=== PATIENT | male | born 1965 | race Caucasian/White ===

== ENCOUNTER 2016-12-28 18:19 | Emergency (ER) | payer OTHER ==
[~2016-12-28] VITALS: Ht 185.4 cm; Wt 154.2 kg
[~2016-12-28 18:19] MED LIST: ASPIRIN81 M1 PO; ATARAX25 MG PO; AUGMENTIN 875 M1 TAB PO; BACTRIM DS 8001 TA1 PO; CALCIPOTRIENE0.005% TP; CLOBETASOL PROP15 GM TP; CLOBETASOL0.05% T; DAILY MULTIPLE1 TA3 PO; DOVONEX0.0051 T; DOXYCYCLINE100 M3 PO; ECOTRIN81 M1 PO; ESIDREX,ORETIC,25 MG PO; HUMIRA40 MG/0.2 SC; HUMIRA40 MG/0.3 SQ; HYDROCODONE BIT1 T11 PO; INDOCIN50 MG PO; K-Dur 20MEQ20 MEQ PO; KEFLEX500 M1 PO; KEFLEX500 MG PO; KLOR-CON M2020 ME1 PO; LASIX40 MG PO; LEVOFLOXACIN500 MG PO; LEVOTHROID0.125 MG PO; LEVOTHYROXIN0.125 M1 PO; LEVOTHYROXINE0.15 MG PO; LIPITOR20 MG PO; LISINOPRIL20 MG PO; Lopressor25 MG PO; MOTRIN800 MG PO; PLAVIX75 M1 PO; PREDNICOT20 MG PO; PREDNISONE10 MG PO; PREDNISONE20 M1 PO; PRINIVIL10 MG PO; PRINIVIL20 M1 PO; PRINIVIL20 MG PO; SORIATANE25 MG PO; ULTRAM50 MG PO; VIBRAMYCIN100 MG PO; VICO10300 PO; [UNRECOGNIZED DRUG - CODE] TP; [UNRECOGNIZED DRUG - OTHER] PO
[2016-12-28] MEDS ORDERED: VIBRAMYCIN100 MG PO (18:46)
== END 2016-12-28 18:53 | disposition home or self-care (01) ==
LOC: ED 18:19
DX: L40.9 Psoriasis, unspecified (principal); Z88.1 Allergy status to other antibiotic agents; Z88.8 Allergy status to other drugs, medicaments and biological substances; Z79.82 Long term (current) use of aspirin

== ENCOUNTER 2017-01-03 20:06 | Inpatient (IN) | payer OTHER ==
[~2017-01-03] VITALS: Ht 185.4 cm; Wt 179.8 kg
--- NOTE | ~2017-01-03 | CON ---
[place], [place] REPORT OF CONSULTATION [id number] #: [id number] ROOM: 526 DOCTOR: FAWAD TATUM,DECEMBER BIRTHDATE: [birth year] DOS: 01/04/2017 HISTORY OF PRESENT ILLNESS: This is a 51-year-old morbidly obese male who was admitted with bilateral lower extremity cellulitis. He was admitted yesterday. He had been taking doxycycline at home without improvement. He had increased lower extremity pain, redness and swelling. He was apparently here briefly and got 1 day of treatment left with AMA. He is now currently on vancomycin and Zosyn. He also was given 1 dose of clindamycin and he states he tends to have cellulitis approximately once a year. He has extensive psoriasis. He denies any fevers, though he did have some chills in the last day or so. WBC is 8.7 on admission. PAST MEDICAL HISTORY: As above as well as acute coronary syndrome, arthritis of great toe at the metatarsophalangeal joint, coronary artery disease, diverticulosis, hypertension, hepatomegaly, morbid obesity, VT, panic attack. Again, he has extensive psoriasis and psoriatic arthritis, he has seen he states 14 different dermatologists and received biologics as well as used a lot of topical steroids over the years. 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 FAMILY MEDICAL HISTORY: Significant for breast cancer and colon cancer. ALLERGIES: Include CEPHALEXIN, which causes him to turn red and EFALIZUMAB. LABORATORY DATA: WBC is 8.7, platelets 207, BUN 9, creatinine 1.04. LFTs within normal limits. C-reactive protein 1.1, albumin 4.0. Blood cultures are negative thus far. He had ultrasound of his lower extremities, which is negative for DVT as well as clear chest x-ray. REVIEW OF SYSTEMS: Alert and oriented, states his leg redness, swelling and discomfort are much better. He is chronically swells in lower extremities. Again, he has had psoriasis for at least 20 years. He denies any nausea, vomiting, or diarrhea. No cough or shortness of breath. Again, no fevers, some chills in the last day or so. He is morbidly obese. No issues with urination. Further review of systems is unremarkable. CURRENT MEDICATIONS: Include Lipitor, Dulcolax, vancomycin, Lopressor, Zestril, Lovenox, Plavix, aspirin, Synthroid and Zosyn. PHYSICAL EXAMINATION: VITAL SIGNS: Temp 98.8, pulse 59, respirations 20, BP 116/76. GENERAL: A 51-year-old morbidly obese male, in no acute distress. HEAD, EYES, EARS, NOSE AND THROAT: Normocephalic. Mucous membranes pink, moist. No thrush. NECK: No cervical lymphadenopathy. LUNGS: Clear to auscultation bilaterally. Respirations even and unlabored. HEART: Regular rhythm. No murmur appreciated. ABDOMEN: Soft, obese, nontender, no masses. Positive bowel sounds. [place], [place] REPORT OF CONSULTATION NAME: DESTINY PRUITT UNIT #: [id number] ROOM: 526 DOCTOR: FAWAD TATUM,DECEMBER BIRTHDATE: [birth year] EXTREMITIES: +3 edema bilateral lower extremities, which are dark red in color. He appears to have combined with his psoriasis extensive probably tinea pedis of his bilateral feet and he is somewhat systemically rashy and has psoriasis plaques. ASSESSMENT: Bilateral lower extremity cellulitis, which is improving on current antibiotics with vancomycin and Zosyn. He failed outpatient treatment with doxycycline. He has CEPHALOSPORIN allergy. I had a long discussion with him regarding control of the tinea pedis. Anyhow that will take several weeks if not months to really began clear, we will start him on oral Lamisil as well as topical antifungal, transition him to p.o. antibiotics in the next 24-48 hours, probably a quinolone possibly amoxicillin. Staph is not the likely source given the fact that he failed doxycycline as an outpatient, leaving it to be likely strep or possibly other bacteria given the condition of his skin and the fact that he takes very long, very hot soaks in baths on a regular basis, he does not shower. I did have a long discussion with him regarding that for hygiene, prevention of infection as well as to help maintain his skin, he will be better off to take showers and with not using very hot water as this will further dry his skin. Case discussed with Dr. Raquel Johnson. GOPAL RC CELESTIN RAQUEL JOHNSON MD CM:CONSTR:REPORT OF CONSULTATION 1738 01/04/17 1913 interface
--- NOTE | ~2017-01-03 | CON ---
[place], [place] REPORT OF CONSULTATION NAME: DESTINY PRUITT UNIT #: [id number] ROOM: 526 DOCTOR: ELIZABETH YOUNG,RAQUEL Davis BIRTHDATE: [birth year] DOS: 01/04/2017 ADDENDUM I agree with above plans as outlined in the Infectious Disease consult after reviewing the chart, labs and radiographs. We follow the patient up clinically and adjust accordingly. RAQUEL JOHNSON MD CM:CONSTR:REPORT OF CONSULTATION 99 01/04/171907 interface
[2017-01-03 20:09] VITALS: BP 144/94
[2017-01-03 21:00] LABS: BASO # 0.1 10*3/uL (0.0-0.1); BASO % 0.7 % (0.0-1.0); EOS # 0.4 10*3/uL (0.0-0.4); EOS % 4.2 % (1.0-4.0); HEMOGLOBIN 13.4 g/dl (14.0-18.0); LYMPH # 1.8 10*3/uL (1.3-4.4); LYMPH % 21.3 % (27.0-41.0); MEAN CELL VOLUME 84.1 fl (80.0-94.0); MEAN CORPUSCULAR HGB 26.2 pg (27.0-31.0); MEAN CORPUSCULAR HGB CONC 31.2 g/dl (33.0-37.0); MEAN PLATELET VOLUME 10.7 fl (9.6-12.3); MONO # 0.9 10*3/uL (0.1-1.0); MONO % 10.8 % (3.0-9.0); NEUT # 5.4 10*3/uL (2.3-7.9); NEUT % 62.7 % (47.0-73.0); PLATELET COUNT AUTOMATED 207 10*3/uL (130-400); RED BLOOD COUNT 5.11 10*6/uL (4.50-5.90); RED CELL DISTRI WIDTH 15.9 % (0-14.5); WHITE BLOOD COUNT 8.7 10*3/uL (4.8-10.8)
[2017-01-03 21:16] LABS: ALKALINE PHOSPHATASE 124 U/L (45-117); BILIRUBIN, TOTAL 0.7 mg/dl (0.2-1.0); BUN 9 mg/dl (7-24); CARBON DIOXIDE 26 mmol/L (21-32); CHLORIDE 106 mmol/L (98-107); EST GLOM FILT AFRICAN AMERICAN > 60 ml/min; GLUCOSE 90 mg/dL (65-99); POTASSIUM 3.9 mmol/L (3.5-5.1); SGOT/AST 18 IU/L (3-35); SGPT/ALT 27 U/L (12-78); SODIUM 141 mmol/L (136-145); TOTAL PROTEIN 8.1 gm/dL (6.4-8.2)
[2017-01-03 22:30] VITALS: BP 153/84
[2017-01-03 22:32] LABS: BILIRUBIN NEGATIVE (NEGATIVE); BLOOD NEGATIVE (NEGATIVE); CLARITY SL CLOUDY (CLEAR); COLOR YELLOW (YELLOW); GLUCOSE NEGATIVE (NEGATIVE); KETONE NEGATIVE (NEGATIVE); LEUKO ESTERASE NEGATIVE (NEGATIVE); NITRITE NEGATIVE (NEGATIVE); PH 6.5 (5.0-9.0); PROTEIN NEGATIVE (NEGATIVE); SPECIFIC GRAVITY 1.015 (1.005-1.030)
[2017-01-03 22:38] LABS: BACTERIA 1+; RBC 0-2 rbc/hpf (0-2); URINE REFLEX COMMENT NO (NO); WBC 0-2 wbc/hpf (0-5)
[2017-01-04] VITALS: BP 131/64
[2017-01-04 08:00] VITALS: BP 128/66
[2017-01-04 12:00] VITALS: BP 140/76
[2017-01-04 16:24] VITALS: BP 116/76
[2017-01-04 18:47] LABS: HEMOGLOBIN A1c 6.2 % (4.8-5.6)
[2017-01-04 21:11] VITALS: BP 138/68
[2017-01-05] VITALS: BP 125/62
[2017-01-05] MEDS ORDERED: LAMISIL AT JOCK IT1% T (10:46)
[2017-01-05] MEDS ORDERED: LEVAQUIN750 M1 PO (10:46)
[2017-01-05] MEDS ORDERED: LAMISIL250 MG PO (10:46)
== END 2017-01-05 07:52 | disposition left against medical advice (07) | DRG 603 ==
LOC: ED 20:06 → EDHOLD 20:51 → 5E 21:21
PROVIDERS: Emergency Medicine Emergency Medical Services; Hospitalist
DX: L03.116 Cellulitis of left lower limb (principal); Z68.41 Body mass index [BMI] 40.0-44.9, adult; I10 Essential (primary) hypertension; E66.01 Morbid (severe) obesity due to excess calories; L03.115 Cellulitis of right lower limb; L40.0 Psoriasis vulgaris; F41.0 Panic disorder [episodic paroxysmal anxiety]; I25.10 Atherosclerotic heart disease of native coronary artery without angina pectoris; R59.1 Generalized enlarged lymph nodes; K57.90 Diverticulosis of intestine, part unspecified, without perforation or abscess without bleeding; M13.879 Other specified arthritis, unspecified ankle and foot; E03.9 Hypothyroidism, unspecified; R73.03 Prediabetes; Z53.21 Procedure and treatment not carried out due to patient leaving prior to being seen by health care provider; I25.2 Old myocardial infarction; Z88.1 Allergy status to other antibiotic agents; Z88.8 Allergy status to other drugs, medicaments and biological substances; Z80.3 Family history of malignant neoplasm of breast; Z83.79 Family history of other diseases of the digestive system; Z79.82 Long term (current) use of aspirin; Z79.2 Long term (current) use of antibiotics; Z79.899 Other long term (current) drug therapy

== ENCOUNTER 2017-01-12 21:22 | Emergency (ER) | payer OTHER ==
[~2017-01-12] VITALS: Ht 185.4 cm; Wt 147.4 kg
[~2017-01-12 21:22] MED LIST changes: +LAMISIL AT JOCK IT1% T; +LAMISIL250 MG PO; +LEVAQUIN750 M1 PO
[2017-01-12] MEDS ORDERED: DIFLUCAN150 MG PO (22:23)
[2017-01-13] MEDS ORDERED: NATURE'S BLEND F1 MG PO (18:25)
[2017-01-14] MEDS ORDERED: CLOBETASOL PROP15 GM TP (13:48)
== END 2017-01-12 23:27 | disposition home or self-care (01) ==
LOC: ED 21:22
DX: L40.8 Other psoriasis (principal); B37.89 Other sites of candidiasis; Z79.899 Other long term (current) drug therapy; Z79.82 Long term (current) use of aspirin; Z88.1 Allergy status to other antibiotic agents; Z88.8 Allergy status to other drugs, medicaments and biological substances

== ENCOUNTER 2017-01-15 12:48 | Emergency (ER) | payer OTHER ==
[~2017-01-15] VITALS: Ht 185.4 cm; Wt 142.9 kg
[~2017-01-15 12:48] MED LIST changes: +DIFLUCAN150 MG PO; +NATURE'S BLEND F1 MG PO
[2017-01-15] MEDS ORDERED: MYCOLOG CREAM 115 GM T (13:06)
[2017-01-16] MEDS ORDERED: NAPROSYN500 MG PO (09:25)
[2017-01-16] MEDS ORDERED: CLARITIN10 MG PO (09:25)
[2017-01-16] MEDS ORDERED: PREDNISONE50 MG PO (09:25)
[2017-01-16] MEDS ORDERED: FLUCONAZOLE100 MG PO (09:25)
[2017-01-16] MEDS ORDERED: ZOFRAN ODT4 MG SL (09:52)
== END 2017-01-15 15:05 | disposition home or self-care (01) ==
LOC: ED 12:48
DX: L30.8 Other specified dermatitis (principal); I10 Essential (primary) hypertension; I25.10 Atherosclerotic heart disease of native coronary artery without angina pectoris; E03.9 Hypothyroidism, unspecified; I25.2 Old myocardial infarction; F41.0 Panic disorder [episodic paroxysmal anxiety]; E66.01 Morbid (severe) obesity due to excess calories; Z88.1 Allergy status to other antibiotic agents; Z88.8 Allergy status to other drugs, medicaments and biological substances; Z79.82 Long term (current) use of aspirin; Z79.899 Other long term (current) drug therapy

== ENCOUNTER 2017-01-16 08:45 | Emergency (ER) | payer OTHER ==
[~2017-01-16] VITALS: Ht 185.4 cm; Wt 145.1 kg
[~2017-01-16 08:45] MED LIST changes: +MYCOLOG CREAM 115 GM T
[2017-01-16] MEDS ORDERED: FLUCONAZOLE100 MG PO (09:25)
[2017-01-16] MEDS ORDERED: CLARITIN10 MG PO (09:25)
[2017-01-16] MEDS ORDERED: PREDNISONE50 MG PO (09:25)
[2017-01-16] MEDS ORDERED: NAPROSYN500 MG PO (09:25)
[2017-01-16] MEDS ORDERED: ZOFRAN ODT4 MG SL (09:52)
[2017-01-16 10:35] LABS: BASO % 0.1 % (0.0-1.0); EOS % 0.1 % (1.0-4.0); HEMATOCRIT 42.2 % (42.0-52.0); HEMOGLOBIN 13.5 g/dl (14.0-18.0); IG # 0.1 10*3/uL (0.0-0.1); LYMPH % 6.9 % (27.0-41.0); MEAN CELL VOLUME 82.4 fl (80.0-94.0); MEAN CORPUSCULAR HGB 26.4 pg (27.0-31.0); MONO # 1.2 10*3/uL (0.1-1.0); MONO % 7.9 % (3.0-9.0); NEUT # 12.3 10*3/uL (2.3-7.9); NEUT % 84.7 % (47.0-73.0); PLATELET COUNT AUTOMATED 188 10*3/uL (130-400); RED BLOOD COUNT 5.12 10*6/uL (4.50-5.90); RED CELL DISTRI WIDTH 16.7 % (0-14.5); WHITE BLOOD COUNT 14.6 10*3/uL (4.8-10.8)
== END 2017-01-16 11:19 | disposition short-term general hospital (02) ==
LOC: ED 08:45
PROVIDERS: Emergency Medicine
DX: L27.0 Generalized skin eruption due to drugs and medicaments taken internally (principal); L40.9 Psoriasis, unspecified; B37.9 Candidiasis, unspecified; I10 Essential (primary) hypertension; E03.9 Hypothyroidism, unspecified; I25.10 Atherosclerotic heart disease of native coronary artery without angina pectoris; M19.90 Unspecified osteoarthritis, unspecified site; Z88.1 Allergy status to other antibiotic agents; Z88.8 Allergy status to other drugs, medicaments and biological substances

== ENCOUNTER 2017-01-30 08:33 | Inpatient (IN) | payer OTHER ==
[~2017-01-30] VITALS: Ht 188 cm; Wt 175.7 kg
--- NOTE | ~2017-01-30 | CON ---
[place], [place] REPORT OF CONSULTATION NAME: DESTINY PRUITT UNIT #: [id number] ROOM: 409 DOCTOR: ELIZABETH YOUNG,RAQUEL Davis BIRTHDATE: [birth year] DOS: 01/30/2017 ADDENDUM INFECTIOUS DISEASE I agree with above plans as described. We will follow the patient up clinically and make adjustments accordingly as labs and cultures return. RAQUEL JOHNSON MD CM:CONSTR:REPORT OF CONSULTATION 1212 02/02/17 1525 interface
--- NOTE | ~2017-01-30 | CON ---
[place], [place] REPORT OF CONSULTATION [id number] UNIT #: [id number] ROOM: 409 DOCTOR: FAWAD TATUM,DECEMBER BIRTHDATE: [birth year] DOS: 01/30/2017 HISTORY OF PRESENT ILLNESS: A 51-year-old obese male who is admitted from home. He states he was sent in by [facility] due to positive blood cultures. He has been in and out of the hospital for lower extremity cellulitis since beginning of January. He was here briefly on 01/05/2017 and left AMA. He came back on 01/14/2017, received Levaquin and vancomycin. 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 He also was seen by Dermatology and given script for methotrexate, which he has not yet started as well as folic acid, which he also has not started. He was discharged approximately 10 days ago with no antibiotics. Yesterday, he developed chills and went to [facility] Emergency Room. He had blood cultures done. The preliminary report has been obtained, and it shows Gram-positive cocci in pairs and chains from 1 set. ID is now consulted for positive blood cultures. He received a dose of doxycycline in the Emergency Room IV. PAST MEDICAL HISTORY: As above as well as coronary artery disease status post stenting, hypertension, hyperlipidemia, hypothyroidism, psoriasis, and diverticulosis. FAMILY MEDICAL HISTORY: Father with colon cancer, mother with breast cancer. 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 ALLERGIES: Include LEVAQUIN, VANCOMYCIN, CEPHALOSPORINS, CEPHALEXIN, EFALIZUMAB. CURRENT MEDICATIONS: Include Zestril, Lovenox, Plavix, Lipitor, aspirin, Synthroid, Kenalog, Lopressor, Restoril, Zofran, milk of magnesium, Dulcolax and again, he received one dose of IV doxycycline. REVIEW OF SYSTEMS: Alert and oriented, states he feels much better. Denies any fevers. No nausea, vomiting or diarrhea. He has resolving systemic rash, which he states is much improved from 12 days ago when it began. No headache or dizziness. No chest pain or palpitations. He has chronic lower extremity edema. Does have psoriasis. Denies any pain. No open wounds. Further review of systems is unremarkable. PHYSICAL EXAMINATION: VITAL SIGNS: Show temperature 97.7, pulse 70, respirations 18, BP 148/78. LABORATORY DATA: WBC is 8.9, platelets 165, sed rate of 32, BUN 5, creatinine 1.03. LFTs within normal limits. Albumin 3.5. PHYSICAL EXAMINATION: GENERAL: A 51-year-old obese male in no acute distress. [place], [place] REPORT OF CONSULTATION NAME: DESTINY PRUITT UNIT #: [id number] ROOM: 409 DOCTOR: FAWAD TATUM,DECEMBER BIRTHDATE: [birth year] HEAD, EYES, EARS, NOSE AND THROAT: Normocephalic. Mucous membranes pink and moist. No thrush. NECK: No cervical lymphadenopathy. LUNGS: Clear to auscultation bilaterally. Respirations even and unlabored. HEART: Regular rhythm. No murmur appreciated. ABDOMEN: Soft, obese, nontender, no masses. EXTREMITIES: +2 edema bilateral lower extremity. Systemically he has signs of psoriasis as well as erythematous color to his entire body with a very dry skin, where he has peeled recently from his rash, but no open wounds. ASSESSMENT: Bacteremia in a patient who recently had systemic rash due to allergic reaction of vancomycin, Gram-positive cocci in chains or pairs would be consistent with strep or enterococcus. He denies any urinary symptoms. PLAN: At this point, he needs to have one dose of daptomycin 6 mg per kilogram IV x1. He did have repeat blood cultures done with his admission here, blood cultures will need to be followed up on from [facility] as well as the cultures here determine further antibiotics the daptomycin well. We will hold him for 24 hours. Case was discussed with Dr. Raquel Johnson. GOPAL CELESTIN CNP RAQUEL JOHNSON MD CM:CONSTR:REPORT OF CONSULTATION 02 01/30/171953 interface
[~2017-01-30 08:33] MED LIST changes: +CLARITIN10 MG PO; +FLUCONAZOLE100 MG PO; +NAPROSYN500 MG PO; +PREDNISONE50 MG PO; +ZOFRAN ODT4 MG SL
[2017-01-30 08:38] VITALS: BP 170/80
[2017-01-30] MEDS ORDERED: TRIAMCINOLONE AC0.1% T (09:07)
[2017-01-30] MEDS ORDERED: VIRT-VITE TABL1 EACH PO (09:07)
[2017-01-30 09:10] LABS: BASO # 0.1 10*3/uL (0.0-0.1); BASO % 0.7 % (0.0-1.0); EOS # 0.3 10*3/uL (0.0-0.4); EOS % 3.7 % (1.0-4.0); HEMOGLOBIN 12.6 g/dl (14.0-18.0); LYMPH % 11.5 % (27.0-41.0); MEAN CELL VOLUME 83.9 fl (80.0-94.0); MEAN CORPUSCULAR HGB 26.4 pg (27.0-31.0); MEAN CORPUSCULAR HGB CONC 31.5 g/dl (33.0-37.0); MEAN PLATELET VOLUME 10.7 fl (9.6-12.3); MONO # 0.8 10*3/uL (0.1-1.0); MONO % 8.6 % (3.0-9.0); NEUT # 6.7 10*3/uL (2.3-7.9); NEUT % 75.3 % (47.0-73.0); PLATELET COUNT AUTOMATED 165 10*3/uL (130-400); RED BLOOD COUNT 4.77 10*6/uL (4.50-5.90); WHITE BLOOD COUNT 8.9 10*3/uL (4.8-10.8)
[2017-01-30 09:26] LABS: ALBUMIN 3.5 gm/dl (3.1-4.5); ALKALINE PHOSPHATASE 101 U/L (45-117); BUN 5 mg/dl (7-24); CARBON DIOXIDE 28 mmol/L (21-32); CHLORIDE 105 mmol/L (98-107); EST GLOM FILT AFRICAN AMERICAN > 60 ml/min; GLUCOSE 107 mg/dL (65-99); SGOT/AST 15 IU/L (3-35); SGPT/ALT 28 U/L (12-78); SODIUM 142 mmol/L (136-145); TOTAL PROTEIN 7.3 gm/dL (6.4-8.2)
[2017-01-30 10:49] VITALS: BP 126/64
[2017-01-30 11:00] VITALS: BP 124/70
[2017-01-30 16:00] VITALS: BP 148/78
[2017-01-30 20:00] VITALS: BP 146/83
[2017-01-31] VITALS: BP 100/50
[2017-01-31 06:27] LABS: BASO % 0.6 % (0.0-1.0); EOS # 0.4 10*3/uL (0.0-0.4); EOS % 5.2 % (1.0-4.0); HEMATOCRIT 38.4 % (42.0-52.0); HEMOGLOBIN 11.9 g/dl (14.0-18.0); LYMPH # 1.2 10*3/uL (1.3-4.4); LYMPH % 16.1 % (27.0-41.0); MEAN CELL VOLUME 84.6 fl (80.0-94.0); MEAN CORPUSCULAR HGB 26.2 pg (27.0-31.0); MEAN PLATELET VOLUME 10.7 fl (9.6-12.3); MONO # 0.7 10*3/uL (0.1-1.0); MONO % 9.5 % (3.0-9.0); NEUT # 4.9 10*3/uL (2.3-7.9); NEUT % 68.3 % (47.0-73.0); PLATELET COUNT AUTOMATED 157 10*3/uL (130-400); RED BLOOD COUNT 4.54 10*6/uL (4.50-5.90); RED CELL DISTRI WIDTH 17.1 % (0-14.5); WHITE BLOOD COUNT 7.2 10*3/uL (4.8-10.8)
[2017-01-31 06:38] LABS: HEMOGLOBIN A1c 6.3 % (4.8-5.6)
[2017-01-31 06:59] LABS: BUN 5 mg/dl (7-24); CARBON DIOXIDE 28 mmol/L (21-32); CHLORIDE 107 mmol/L (98-107); CHOLESTEROL 106 mg/dL (<200); EST GLOM FILT AFRICAN AMERICAN > 60 ml/min; FREE T4 0.58 ng/dl (0.76-1.46); GLUCOSE 80 mg/dL (65-99); HDL CHOLESTEROL 41 mg/dl (40-60); LDL CHOLESTEROL 53 mg/dL (9-159); PHOSPHOROUS 3.9 mg/dL (2.5-4.9); POTASSIUM 4.2 mmol/L (3.5-5.1); SODIUM 143 mmol/L (136-145); TRIGLYCERIDES 62 mg/dl (<150); VLDL CHOLESTEROL 12 mg/dL (6-40)
[2017-01-31 07:53] LABS: FOLIC ACID 8.89 ng/mL (>5.38); VITAMIN D, 25-HYDROXY 10.6 ng/mL (30-100)
[2017-01-31 08:00] VITALS: BP 148/82
[2017-01-31 12:00] VITALS: BP 148/70
== END 2017-01-31 15:25 | disposition left against medical advice (07) | DRG 153 ==
LOC: ED 08:33 → EDHOLD 10:38 → 4E 10:46
PROVIDERS: Emergency Medicine; Internal Medicine
DX: J06.9 Acute upper respiratory infection, unspecified (principal); R78.81 Bacteremia; I10 Essential (primary) hypertension; Z68.42 Body mass index [BMI] 45.0-49.9, adult; E66.01 Morbid (severe) obesity due to excess calories; I25.10 Atherosclerotic heart disease of native coronary artery without angina pectoris; E03.9 Hypothyroidism, unspecified; F41.0 Panic disorder [episodic paroxysmal anxiety]; L40.8 Other psoriasis; E78.5 Hyperlipidemia, unspecified; R70.0 Elevated erythrocyte sedimentation rate; D64.9 Anemia, unspecified; F17.220 Nicotine dependence, chewing tobacco, uncomplicated; Z88.1 Allergy status to other antibiotic agents; Z88.8 Allergy status to other drugs, medicaments and biological substances; I25.2 Old myocardial infarction; Z95.5 Presence of coronary angioplasty implant and graft; Z80.0 Family history of malignant neoplasm of digestive organs; Z82.5 Family history of asthma and other chronic lower respiratory diseases; Z83.3 Family history of diabetes mellitus

== ENCOUNTER 2017-02-14 07:20 | Emergency (ER) | payer OTHER ==
[~2017-02-14 07:20] MED LIST changes: +TRIAMCINOLONE AC0.1% T; +VIRT-VITE TABL1 EACH PO
[2017-02-14 07:49] LABS: BASO # 0.1 10*3/uL (0.0-0.1); BASO % 0.7 % (0.0-1.0); EOS # 0.4 10*3/uL (0.0-0.4); EOS % 5.7 % (1.0-4.0); HEMATOCRIT 38.4 % (42.0-52.0); HEMOGLOBIN 12.1 g/dl (14.0-18.0); LYMPH # 1.3 10*3/uL (1.3-4.4); LYMPH % 17.5 % (27.0-41.0); MEAN CELL VOLUME 84.2 fl (80.0-94.0); MEAN CORPUSCULAR HGB 26.5 pg (27.0-31.0); MEAN CORPUSCULAR HGB CONC 31.5 g/dl (33.0-37.0); MEAN PLATELET VOLUME 10.1 fl (9.6-12.3); MONO # 0.6 10*3/uL (0.1-1.0); MONO % 8.7 % (3.0-9.0); NEUT # 4.9 10*3/uL (2.3-7.9); NEUT % 67.1 % (47.0-73.0); PLATELET COUNT AUTOMATED 199 10*3/uL (130-400); RED BLOOD COUNT 4.56 10*6/uL (4.50-5.90); RED CELL DISTRI WIDTH 17.9 % (0-14.5); WHITE BLOOD COUNT 7.3 10*3/uL (4.8-10.8)
[2017-02-14 08:10] LABS: ALBUMIN 3.2 gm/dl (3.1-4.5); ALKALINE PHOSPHATASE 86 U/L (45-117); BILIRUBIN, TOTAL 0.6 mg/dl (0.2-1.0); BUN 5 mg/dl (7-24); C-REACTIVE PROTEIN 2.92 MG/DL (0-0.3); CARBON DIOXIDE 26 mmol/L (21-32); CHLORIDE 108 mmol/L (98-107); EST GLOM FILT AFRICAN AMERICAN > 60 ml/min; GLUCOSE 89 mg/dL (65-99); POTASSIUM 3.9 mmol/L (3.5-5.1); SGOT/AST 18 IU/L (3-35); SGPT/ALT 22 U/L (12-78); SODIUM 143 mmol/L (136-145); TOTAL PROTEIN 7.3 gm/dL (6.4-8.2)
== END 2017-02-14 08:24 | disposition home or self-care (01) ==
LOC: ED 07:20
PROVIDERS: Student in an Organized Health Care Education/Training Program
DX: R59.1 Generalized enlarged lymph nodes (principal); I25.10 Atherosclerotic heart disease of native coronary artery without angina pectoris; I10 Essential (primary) hypertension; E78.5 Hyperlipidemia, unspecified; E03.9 Hypothyroidism, unspecified; Z88.1 Allergy status to other antibiotic agents; Z88.8 Allergy status to other drugs, medicaments and biological substances; Z79.899 Other long term (current) drug therapy; Z79.82 Long term (current) use of aspirin

== ENCOUNTER 2017-02-16 17:08 | Inpatient (IN) | payer OTHER ==
[~2017-02-16] VITALS: Ht 182.8 cm; Wt 136.1 kg
[2017-02-16 17:46] VITALS: BP 142/90
[2017-02-16 18:51] LABS: BASO # 0.1 10*3/uL (0.0-0.1); BASO % 0.8 % (0.0-1.0); EOS # 0.4 10*3/uL (0.0-0.4); HEMATOCRIT 38.6 % (42.0-52.0); HEMOGLOBIN 12.1 g/dl (14.0-18.0); LYMPH # 1.1 10*3/uL (1.3-4.4); LYMPH % 12.7 % (27.0-41.0); MEAN CORPUSCULAR HGB 26.7 pg (27.0-31.0); MEAN CORPUSCULAR HGB CONC 31.3 g/dl (33.0-37.0); MEAN PLATELET VOLUME 10.2 fl (9.6-12.3); MONO # 0.9 10*3/uL (0.1-1.0); NEUT # 6.2 10*3/uL (2.3-7.9); NEUT % 71.3 % (47.0-73.0); PLATELET COUNT AUTOMATED 212 10*3/uL (130-400); RED BLOOD COUNT 4.54 10*6/uL (4.50-5.90); RED CELL DISTRI WIDTH 17.7 % (0-14.5); WHITE BLOOD COUNT 8.6 10*3/uL (4.8-10.8)
[2017-02-16 19:05] LABS: ALBUMIN 3.4 gm/dl (3.1-4.5); ALKALINE PHOSPHATASE 93 U/L (45-117); BILIRUBIN, TOTAL 0.7 mg/dl (0.2-1.0); BUN 6 mg/dl (7-24); CARBON DIOXIDE 27 mmol/L (21-32); CHLORIDE 105 mmol/L (98-107); EST GLOM FILT AFRICAN AMERICAN > 60 ml/min; GLUCOSE 96 mg/dL (65-99); POTASSIUM 3.9 mmol/L (3.5-5.1); SGOT/AST 17 IU/L (3-35); SGPT/ALT 19 U/L (12-78); SODIUM 143 mmol/L (136-145); TOTAL PROTEIN 7.5 gm/dL (6.4-8.2)
[2017-02-16 20:06] LABS: BILIRUBIN NEGATIVE (NEGATIVE); BLOOD NEGATIVE (NEGATIVE); CLARITY CLEAR (CLEAR); COLOR YELLOW (YELLOW); GLUCOSE NEGATIVE (NEGATIVE); KETONE NEGATIVE (NEGATIVE); LEUKO ESTERASE NEGATIVE (NEGATIVE); NITRITE NEGATIVE (NEGATIVE); PH 5.5 (5.0-9.0); PROTEIN NEGATIVE (NEGATIVE); SPECIFIC GRAVITY <= 1.005 (1.005-1.030); UROBILINOGEN 0.2 E.U./dl (0.2-1.0)
[2017-02-16 20:15] VITALS: BP 140/82
[2017-02-16 20:19] LABS: BACTERIA TRACE; RBC 0-2 rbc/hpf (0-2); URINE REFLEX COMMENT NO (NO); WBC 0-2 wbc/hpf (0-5)
[2017-02-17] VITALS (10 sets, daily range): BP systolic 118–174; BP diastolic 58–87
[2017-02-17 06:10] LABS: HEMOGLOBIN A1c 6.4 % (4.8-5.6)
[2017-02-17 06:13] LABS: BASO # 0.1 10*3/uL (0.0-0.1); BASO % 0.7 % (0.0-1.0); EOS # 0.4 10*3/uL (0.0-0.4); EOS % 5.8 % (1.0-4.0); HEMATOCRIT 35.7 % (42.0-52.0); HEMOGLOBIN 11.1 g/dl (14.0-18.0); LYMPH # 1.1 10*3/uL (1.3-4.4); LYMPH % 16.3 % (27.0-41.0); MEAN CELL VOLUME 84.6 fl (80.0-94.0); MEAN CORPUSCULAR HGB 26.3 pg (27.0-31.0); MEAN CORPUSCULAR HGB CONC 31.1 g/dl (33.0-37.0); MEAN PLATELET VOLUME 10.4 fl (9.6-12.3); MONO # 0.8 10*3/uL (0.1-1.0); MONO % 11.2 % (3.0-9.0); NEUT # 4.4 10*3/uL (2.3-7.9); NEUT % 65.9 % (47.0-73.0); PLATELET COUNT AUTOMATED 191 10*3/uL (130-400); RED BLOOD COUNT 4.22 10*6/uL (4.50-5.90); RED CELL DISTRI WIDTH 17.8 % (0-14.5); WHITE BLOOD COUNT 6.7 10*3/uL (4.8-10.8)
[2017-02-17 06:21] LABS: ALBUMIN 2.8 gm/dl (3.1-4.5); ALKALINE PHOSPHATASE 80 U/L (45-117); BILIRUBIN, TOTAL 0.5 mg/dl (0.2-1.0); BUN 5 mg/dl (7-24); CARBON DIOXIDE 27 mmol/L (21-32); CHLORIDE 107 mmol/L (98-107); CHOLESTEROL 103 mg/dL (<200); EST GLOM FILT AFRICAN AMERICAN > 60 ml/min; GLUCOSE 78 mg/dL (65-99); HDL CHOLESTEROL 41 mg/dl (40-60); LDL CHOLESTEROL 50 mg/dL (9-159); PHOSPHOROUS 3.8 mg/dL (2.5-4.9); POTASSIUM 3.8 mmol/L (3.5-5.1); SGOT/AST 12 IU/L (3-35); SGPT/ALT 18 U/L (12-78); SODIUM 144 mmol/L (136-145); TOTAL PROTEIN 6.5 gm/dL (6.4-8.2); TRIGLYCERIDES 62 mg/dl (<150); VLDL CHOLESTEROL 12 mg/dL (6-40)
[2017-02-17 06:56] LABS: FOLIC ACID 7.41 ng/mL (>5.38); VITAMIN D, 25-HYDROXY 19.7 ng/mL (30-100)
[2017-02-18] VITALS: BP 108/55
[2017-02-18 08:00] VITALS: BP 132/80
[2017-02-18 12:00] VITALS: BP 140/78
== END 2017-02-18 14:05 | disposition left against medical advice (07) | DRG 603 ==
LOC: ED 17:08 → 4E 19:35 → EDHOLD 19:35 → 4E 02-17 11:17
PROVIDERS: Nurse Practitioner Family; Student in an Organized Health Care Education/Training Program
DX: L03.116 Cellulitis of left lower limb (principal); L51.1 Stevens-Johnson syndrome; R78.81 Bacteremia; Z68.41 Body mass index [BMI] 40.0-44.9, adult; E66.01 Morbid (severe) obesity due to excess calories; L40.50 Arthropathic psoriasis, unspecified; R16.0 Hepatomegaly, not elsewhere classified; R59.1 Generalized enlarged lymph nodes; K57.90 Diverticulosis of intestine, part unspecified, without perforation or abscess without bleeding; L03.115 Cellulitis of right lower limb; Z53.21 Procedure and treatment not carried out due to patient leaving prior to being seen by health care provider; I25.10 Atherosclerotic heart disease of native coronary artery without angina pectoris; L40.0 Psoriasis vulgaris; I10 Essential (primary) hypertension; E03.9 Hypothyroidism, unspecified; E78.5 Hyperlipidemia, unspecified; I25.2 Old myocardial infarction; Z95.5 Presence of coronary angioplasty implant and graft; Z80.0 Family history of malignant neoplasm of digestive organs; Z80.3 Family history of malignant neoplasm of breast; Z88.1 Allergy status to other antibiotic agents; Z88.8 Allergy status to other drugs, medicaments and biological substances; Z79.82 Long term (current) use of aspirin; Z79.899 Other long term (current) drug therapy

== ENCOUNTER 2017-02-25 00:31 | Emergency (ER) | payer OTHER ==
[~2017-02-25] VITALS: Ht 185.4 cm; Wt 147.4 kg
[2017-02-25 01:15] LABS: BASO % 0.4 % (0.0-1.0); EOS # 0.2 10*3/uL (0.0-0.4); EOS % 2.6 % (1.0-4.0); HEMATOCRIT 38.6 % (42.0-52.0); LYMPH # 1.3 10*3/uL (1.3-4.4); MEAN CELL VOLUME 83.5 fl (80.0-94.0); MEAN CORPUSCULAR HGB CONC 31.1 g/dl (33.0-37.0); MEAN PLATELET VOLUME 9.6 fl (9.6-12.3); MONO # 0.8 10*3/uL (0.1-1.0); MONO % 9.2 % (3.0-9.0); NEUT # 6.7 10*3/uL (2.3-7.9); NEUT % 73.4 % (47.0-73.0); PLATELET COUNT AUTOMATED 235 10*3/uL (130-400); RED BLOOD COUNT 4.62 10*6/uL (4.50-5.90); RED CELL DISTRI WIDTH 17.7 % (0-14.5); WHITE BLOOD COUNT 9.1 10*3/uL (4.8-10.8)
[2017-02-25 01:29] LABS: ALBUMIN 3.3 gm/dl (3.1-4.5); ALKALINE PHOSPHATASE 85 U/L (45-117); BILIRUBIN, TOTAL 0.6 mg/dl (0.2-1.0); BUN 8 mg/dl (7-24); C-REACTIVE PROTEIN 2.87 MG/DL (0-0.3); CARBON DIOXIDE 27 mmol/L (21-32); CHLORIDE 106 mmol/L (98-107); EST GLOM FILT AFRICAN AMERICAN > 60 ml/min; GLUCOSE 91 mg/dL (65-99); SGOT/AST 20 IU/L (3-35); SGPT/ALT 28 U/L (12-78); SODIUM 141 mmol/L (136-145); TOTAL PROTEIN 7.5 gm/dL (6.4-8.2)
[2017-02-25] MEDS ORDERED: NORCO 5-325 TA1 EACH PO (03:01)
[2017-02-25] MEDS ORDERED: ZOFRAN ODT4 MG SL (03:01)
[2017-02-25 03:03] LABS: BILIRUBIN NEGATIVE (NEGATIVE); BLOOD NEGATIVE (NEGATIVE); CLARITY CLEAR (CLEAR); COLOR YELLOW (YELLOW); GLUCOSE NEGATIVE (NEGATIVE); KETONE NEGATIVE (NEGATIVE); LEUKO ESTERASE NEGATIVE (NEGATIVE); NITRITE NEGATIVE (NEGATIVE); PH 5.5 (5.0-9.0); PROTEIN NEGATIVE (NEGATIVE); UROBILINOGEN 0.2 E.U./dl (0.2-1.0)
[2017-02-25 03:08] LABS: URINE REFLEX COMMENT NO (NO)
== END 2017-02-25 03:51 | disposition home or self-care (01) ==
LOC: ED 00:31
PROVIDERS: Physician Assistant
DX: N20.1 Calculus of ureter (principal); N23 Unspecified renal colic; I25.10 Atherosclerotic heart disease of native coronary artery without angina pectoris; I10 Essential (primary) hypertension; E78.5 Hyperlipidemia, unspecified; E03.9 Hypothyroidism, unspecified; I25.2 Old myocardial infarction; M13.879 Other specified arthritis, unspecified ankle and foot; Z88.1 Allergy status to other antibiotic agents; Z88.8 Allergy status to other drugs, medicaments and biological substances; Z79.82 Long term (current) use of aspirin; Z79.899 Other long term (current) drug therapy

== ENCOUNTER 2017-02-25 19:16 | Emergency (ER) | payer OTHER ==
[~2017-02-25] VITALS: Ht 185.4 cm; Wt 147.4 kg
[~2017-02-25 19:16] MED LIST changes: +NORCO 5-325 TA1 EACH PO
[2017-02-25 19:53] LABS: BILIRUBIN NEGATIVE (NEGATIVE); BLOOD 3+ (NEGATIVE); CLARITY SL CLOUDY (CLEAR); COLOR YELLOW (YELLOW); GLUCOSE NEGATIVE (NEGATIVE); KETONE NEGATIVE (NEGATIVE); LEUKO ESTERASE NEGATIVE (NEGATIVE); NITRITE NEGATIVE (NEGATIVE); PROTEIN NEGATIVE (NEGATIVE); UROBILINOGEN 0.2 E.U./dl (0.2-1.0)
[2017-02-25 20:01] LABS: BACTERIA TRACE
[2017-02-25 20:02] LABS: MUCOUS TRACE; RBC 51-100 rbc/hpf (0-2); URINE REFLEX COMMENT YES (NO)
[2017-02-25 20:15] LABS: BASO # 0.1 10*3/uL (0.0-0.1); BASO % 0.5 % (0.0-1.0); EOS # 0.3 10*3/uL (0.0-0.4); HEMATOCRIT 37.1 % (42.0-52.0); HEMOGLOBIN 11.6 g/dl (14.0-18.0); IG # 0.1 10*3/uL (0.0-0.1); LYMPH % 10.2 % (27.0-41.0); MEAN CELL VOLUME 84.3 fl (80.0-94.0); MEAN CORPUSCULAR HGB 26.4 pg (27.0-31.0); MEAN CORPUSCULAR HGB CONC 31.3 g/dl (33.0-37.0); MEAN PLATELET VOLUME 9.8 fl (9.6-12.3); MONO % 10.2 % (3.0-9.0); NEUT # 7.1 10*3/uL (2.3-7.9); NEUT % 75.6 % (47.0-73.0); PLATELET COUNT AUTOMATED 218 10*3/uL (130-400); RED CELL DISTRI WIDTH 17.6 % (0-14.5); WHITE BLOOD COUNT 9.3 10*3/uL (4.8-10.8)
[2017-02-25 20:30] LABS: ALBUMIN 3.2 gm/dl (3.1-4.5); BILIRUBIN, TOTAL 0.7 mg/dl (0.2-1.0); POTASSIUM 4.6 mmol/L (3.5-5.1)
== END 2017-02-25 21:50 | disposition home or self-care (01) ==
LOC: ED 19:16
PROVIDERS: Emergency Medicine
DX: N20.0 Calculus of kidney (principal); I25.10 Atherosclerotic heart disease of native coronary artery without angina pectoris; M19.90 Unspecified osteoarthritis, unspecified site; I10 Essential (primary) hypertension; E66.01 Morbid (severe) obesity due to excess calories; Z79.82 Long term (current) use of aspirin; Z79.899 Other long term (current) drug therapy; Z88.1 Allergy status to other antibiotic agents; Z95.5 Presence of coronary angioplasty implant and graft; Z88.8 Allergy status to other drugs, medicaments and biological substances

== ENCOUNTER → 2019-06-01 | Outpatient (CLI) | payer OTHER ==
[~2019-06-01] MED LIST changes: +FLOMAX0.4 MG PO; +SEPTDS PO
[2019-06-01 08:48] LABS: BASO % 0.7 % (0.0-1.0); EOS # 0.2 10*3/uL (0.0-0.4); EOS % 3.9 % (1.0-4.0); HEMATOCRIT 36.2 % (42.0-52.0); LYMPH # 1.1 10*3/uL (1.3-4.4); LYMPH % 17.5 % (27.0-41.0); MEAN CELL VOLUME 83.8 fl (80.0-94.0); MEAN CORPUSCULAR HGB 25.5 pg (27.0-31.0); MEAN CORPUSCULAR HGB CONC 30.4 g/dl (33.0-37.0); MEAN PLATELET VOLUME 10.9 fl (9.6-12.3); MONO # 0.6 10*3/uL (0.1-1.0); MONO % 10.3 % (3.0-9.0); NEUT # 4.1 10*3/uL (2.3-7.9); NEUT % 67.4 % (47.0-73.0); PLATELET COUNT AUTOMATED 202 10*3/uL (130-400); RED BLOOD COUNT 4.32 10*6/uL (4.50-5.90); RED CELL DISTRI WIDTH 15.9 % (0-14.5); WHITE BLOOD COUNT 6.1 10*3/uL (4.8-10.8)
[2019-06-01 09:13] LABS: ALBUMIN 3.3 gm/dl (3.1-4.5); BUN 11 mg/dl (7-24); CHLORIDE 106 mmol/L (98-107); CREATININE 1.14 mg/dL (0.70-1.30); POTASSIUM 3.9 mmol/L (3.5-5.1); SGOT/AST 16 IU/L (3-35); SGPT/ALT 18 U/L (12-78); SODIUM 139 mmol/L (136-145)
[2019-06-01 09:15] LABS: ALKALINE PHOSPHATASE 84 U/L (45-117); TOTAL PROTEIN 7.9 gm/dL (6.4-8.2)
== END | disposition home or self-care (01) ==
LOC: LAB 08:20
PROVIDERS: Nurse Practitioner Family
DX: T88.7XXA Unspecified adverse effect of drug or medicament, initial encounter (principal)

== ENCOUNTER 2019-06-09 17:41 | Emergency (ER) | payer OTHER ==
[~2019-06-09] VITALS: Ht 185.4 cm; Wt 145.1 kg
[~2019-06-09 17:41] MED LIST changes: -FLOMAX0.4 MG PO; -SEPTDS PO
[2019-06-09 18:07] LABS: BILIRUBIN NEGATIVE (NEGATIVE); BLOOD 3+ (NEGATIVE); CLARITY SL CLOUDY (CLEAR); COLOR YELLOW (YELLOW); GLUCOSE NEGATIVE (NEGATIVE); KETONE NEGATIVE (NEGATIVE); LEUKO ESTERASE NEGATIVE (NEGATIVE); NITRITE NEGATIVE (NEGATIVE); PH 5.5 (5.0-9.0); SPECIFIC GRAVITY 1.025 (1.005-1.030)
[2019-06-09 18:14] LABS: BACTERIA 3+; MUCOUS TRACE; RBC TNTC rbc/hpf (0-2); WBC 0-2 wbc/hpf (0-5)
[2019-06-09 18:19] LABS: BASO % 0.6 % (0.0-1.0); EOS # 0.1 10*3/uL (0.0-0.4); EOS % 1.8 % (1.0-4.0); HEMATOCRIT 38.7 % (42.0-52.0); LYMPH % 13.8 % (27.0-41.0); MEAN CELL VOLUME 82.9 fl (80.0-94.0); MEAN CORPUSCULAR HGB 25.7 pg (27.0-31.0); MEAN PLATELET VOLUME 10.5 fl (9.6-12.3); MONO # 0.6 10*3/uL (0.1-1.0); MONO % 8.3 % (3.0-9.0); NEUT # 5.3 10*3/uL (2.3-7.9); NEUT % 75.4 % (47.0-73.0); PLATELET COUNT AUTOMATED 234 10*3/uL (130-400); RED BLOOD COUNT 4.67 10*6/uL (4.50-5.90); RED CELL DISTRI WIDTH 15.8 % (0-14.5); WHITE BLOOD COUNT 7.1 10*3/uL (4.8-10.8)
[2019-06-09 18:32] LABS: ALBUMIN 3.4 gm/dl (3.1-4.5); ALKALINE PHOSPHATASE 91 U/L (45-117); BUN 10 mg/dl (7-24); CHLORIDE 103 mmol/L (98-107); POTASSIUM 4.1 mmol/L (3.5-5.1); SGOT/AST 13 IU/L (3-35); SGPT/ALT 18 U/L (12-78); SODIUM 138 mmol/L (136-145); TOTAL PROTEIN 8.6 gm/dL (6.4-8.2)
[2019-06-09] MEDS ORDERED: FLOMAX0.4 MG PO (18:40)
[2019-06-09] MEDS ORDERED: SEPTDS PO (18:42)
== END 2019-06-09 18:49 | disposition home or self-care (01) ==
LOC: ED 17:41
PROVIDERS: Family Medicine
DX: N20.0 Calculus of kidney (principal); E11.9 Type 2 diabetes mellitus without complications; I25.2 Old myocardial infarction; E66.01 Morbid (severe) obesity due to excess calories; E78.5 Hyperlipidemia, unspecified; E03.9 Hypothyroidism, unspecified; I10 Essential (primary) hypertension; I25.10 Atherosclerotic heart disease of native coronary artery without angina pectoris; M13.871 Other specified arthritis, right ankle and foot; Z79.82 Long term (current) use of aspirin; Z79.899 Other long term (current) drug therapy; Z88.1 Allergy status to other antibiotic agents; Z88.8 Allergy status to other drugs, medicaments and biological substances

== ENCOUNTER 2019-06-29 07:24 | Emergency (ER) | payer OTHER ==
[~2019-06-29] VITALS: Ht 185.4 cm; Wt 147.4 kg
[~2019-06-29 07:24] MED LIST changes: +FLOMAX0.4 MG PO; +SEPTDS PO
[2019-06-29 08:04] LABS: BASO % 0.5 % (0.0-1.0); EOS # 0.3 10*3/uL (0.0-0.4); EOS % 3.8 % (1.0-4.0); HEMATOCRIT 35.7 % (42.0-52.0); HEMOGLOBIN 10.8 g/dl (14.0-18.0); LYMPH # 0.8 10*3/uL (1.3-4.4); MEAN CELL VOLUME 84.4 fl (80.0-94.0); MEAN CORPUSCULAR HGB 25.5 pg (27.0-31.0); MEAN CORPUSCULAR HGB CONC 30.3 g/dl (33.0-37.0); MEAN PLATELET VOLUME 10.9 fl (9.6-12.3); MONO # 0.7 10*3/uL (0.1-1.0); MONO % 9.8 % (3.0-9.0); NEUT # 5.5 10*3/uL (2.3-7.9); NEUT % 74.8 % (47.0-73.0); PLATELET COUNT AUTOMATED 223 10*3/uL (130-400); RED BLOOD COUNT 4.23 10*6/uL (4.50-5.90); WHITE BLOOD COUNT 7.3 10*3/uL (4.8-10.8)
[2019-06-29 08:21] LABS: ALBUMIN 3.2 gm/dl (3.1-4.5); ALKALINE PHOSPHATASE 85 U/L (45-117); BUN 12 mg/dl (7-24); CHLORIDE 106 mmol/L (98-107); CPK 55 U/L (39-308); CREATININE 1.46 mg/dL (0.70-1.30); SGOT/AST 13 IU/L (3-35); SGPT/ALT 15 U/L (12-78); SODIUM 140 mmol/L (136-145)
[2019-06-29 08:49] LABS: BILIRUBIN NEGATIVE (NEGATIVE); BLOOD 3+ (NEGATIVE); CLARITY CLOUDY (CLEAR); COLOR YELLOW (YELLOW); GLUCOSE NEGATIVE (NEGATIVE); KETONE NEGATIVE (NEGATIVE); LEUKO ESTERASE NEGATIVE (NEGATIVE); NITRITE NEGATIVE (NEGATIVE); PH 5.5 (5.0-9.0); SPECIFIC GRAVITY >= 1.030 (1.005-1.030)
[2019-06-29 08:59] LABS: RBC TNTC rbc/hpf (0-2)
== END 2019-06-29 10:30 | disposition home or self-care (01) ==
LOC: ED 07:24
PROVIDERS: Emergency Medicine
DX: R31.0 Gross hematuria (principal); I25.10 Atherosclerotic heart disease of native coronary artery without angina pectoris; I10 Essential (primary) hypertension; E78.5 Hyperlipidemia, unspecified; E03.9 Hypothyroidism, unspecified; E66.01 Morbid (severe) obesity due to excess calories; I25.2 Old myocardial infarction; F17.220 Nicotine dependence, chewing tobacco, uncomplicated; Z88.1 Allergy status to other antibiotic agents; Z88.8 Allergy status to other drugs, medicaments and biological substances; Z79.82 Long term (current) use of aspirin; Z79.899 Other long term (current) drug therapy; Z87.442 Personal history of urinary calculi

== ENCOUNTER → 2019-07-06 | Outpatient (CLI) | payer OTHER ==
[2019-07-06 08:27] LABS: BILIRUBIN NEGATIVE (NEGATIVE); BLOOD 3+ (NEGATIVE); CLARITY CLOUDY (CLEAR); COLOR YELLOW (YELLOW); GLUCOSE NEGATIVE (NEGATIVE); KETONE NEGATIVE (NEGATIVE); LEUKO ESTERASE NEGATIVE (NEGATIVE); NITRITE NEGATIVE (NEGATIVE)
[2019-07-06 08:58] LABS: CREATININE 1.6 mg/dL (0.70-1.30); POTASSIUM 4.2 mmol/L (3.5-5.1)
[2019-07-06 09:40] LABS: RBC TNTC rbc/hpf (0-2)
[2019-07-06 09:47] LABS: BACTERIA 1+; MUCOUS 1+
== END | disposition home or self-care (01) ==
LOC: LAB 08:03
PROVIDERS: Nurse Practitioner Family
DX: N39.0 Urinary tract infection, site not specified (principal); R31.9 Hematuria, unspecified; R53.83 Other fatigue

== ENCOUNTER 2019-07-07 20:14 | Emergency (ER) | payer OTHER ==
[~2019-07-07] VITALS: Ht 185.4 cm; Wt 149.7 kg
[2019-07-07 20:53] LABS: BASO % 0.3 % (0.0-1.0); EOS # 0.2 10*3/uL (0.0-0.4); HEMATOCRIT 35.2 % (42.0-52.0); HEMOGLOBIN 10.8 g/dl (14.0-18.0); LYMPH # 0.8 10*3/uL (1.3-4.4); LYMPH % 7.6 % (27.0-41.0); MEAN CORPUSCULAR HGB 25.8 pg (27.0-31.0); MEAN CORPUSCULAR HGB CONC 30.7 g/dl (33.0-37.0); MEAN PLATELET VOLUME 10.6 fl (9.6-12.3); MONO % 8.8 % (3.0-9.0); PLATELET COUNT AUTOMATED 225 10*3/uL (130-400); RED BLOOD COUNT 4.19 10*6/uL (4.50-5.90); RED CELL DISTRI WIDTH 16.2 % (0-14.5)
[2019-07-07 21:14] LABS: ALBUMIN 3.3 gm/dl (3.1-4.5); CREATININE 1.63 mg/dL (0.70-1.30); POTASSIUM 4.2 mmol/L (3.5-5.1); TOTAL PROTEIN 8.1 gm/dL (6.4-8.2)
[2019-07-07 22:01] LABS: BILIRUBIN NEGATIVE (NEGATIVE); BLOOD 3+ (NEGATIVE); CLARITY SL CLOUDY (CLEAR); COLOR RED (YELLOW); GLUCOSE NEGATIVE (NEGATIVE); KETONE NEGATIVE (NEGATIVE); LEUKO ESTERASE 1+ (NEGATIVE); NITRITE NEGATIVE (NEGATIVE); UROBILINOGEN 0.2 E.U./dl (0.2-1.0)
[2019-07-07 22:23] LABS: RBC TNTC rbc/hpf (0-2)
[2019-07-07] MEDS ORDERED: SEPTDS PO (23:26)
== END 2019-07-07 23:50 | disposition home or self-care (01) ==
LOC: ED 20:14
PROVIDERS: Emergency Medicine
DX: N39.0 Urinary tract infection, site not specified (principal); R31.9 Hematuria, unspecified; K56.609 Unspecified intestinal obstruction, unspecified as to partial versus complete obstruction; I25.10 Atherosclerotic heart disease of native coronary artery without angina pectoris; I10 Essential (primary) hypertension; E78.5 Hyperlipidemia, unspecified; E03.9 Hypothyroidism, unspecified; E66.01 Morbid (severe) obesity due to excess calories; I25.2 Old myocardial infarction; L40.50 Arthropathic psoriasis, unspecified; G89.29 Other chronic pain; Z88.1 Allergy status to other antibiotic agents; Z79.82 Long term (current) use of aspirin; Z79.899 Other long term (current) drug therapy; Z87.442 Personal history of urinary calculi

== ENCOUNTER 2019-07-08 09:19 | Emergency (ER) | payer OTHER ==
[~2019-07-08] VITALS: Ht 185.4 cm; Wt 149.7 kg
== END 2019-07-08 09:51 | disposition home or self-care (01) ==
LOC: ED 09:19
DX: R31.9 Hematuria, unspecified (principal); I10 Essential (primary) hypertension; I25.2 Old myocardial infarction; G89.29 Other chronic pain; Z88.1 Allergy status to other antibiotic agents; Z88.8 Allergy status to other drugs, medicaments and biological substances; Z79.2 Long term (current) use of antibiotics; Z79.899 Other long term (current) drug therapy; Z79.82 Long term (current) use of aspirin

== ENCOUNTER 2020-03-13 22:51 | Emergency (ER) | payer OTHER ==
[~2020-03-13] VITALS: Ht 182.8 cm; Wt 145.1 kg
[2020-03-13] MEDS ORDERED: HUMIRA40 MG/0.3 SQ (23:31)
== END 2020-03-14 07:01 | disposition short-term general hospital (02) ==
LOC: ED 22:51
DX: S82.142A Displaced bicondylar fracture of left tibia, initial encounter for closed fracture (principal); E03.9 Hypothyroidism, unspecified; E66.01 Morbid (severe) obesity due to excess calories; I25.2 Old myocardial infarction; I25.10 Atherosclerotic heart disease of native coronary artery without angina pectoris; I10 Essential (primary) hypertension; M19.90 Unspecified osteoarthritis, unspecified site; E78.5 Hyperlipidemia, unspecified; Z79.82 Long term (current) use of aspirin; Z79.899 Other long term (current) drug therapy; Z87.442 Personal history of urinary calculi; Z88.1 Allergy status to other antibiotic agents; Z88.8 Allergy status to other drugs, medicaments and biological substances; W17.89XA Other fall from one level to another, initial encounter; Y93.89 Activity, other specified; Y92.34 Swimming pool (public) as the place of occurrence of the external cause; Y99.9 Unspecified external cause status

== ENCOUNTER → 2020-10-21 | Outpatient (CLI) | payer OTHER ==
[2020-10-21 12:09] LABS: BASO % 0.6 % (0.0-1.0); EOS # 0.2 10*3/uL (0.0-0.4); EOS % 3.5 % (1.0-4.0); HEMATOCRIT 42.3 % (42.0-52.0); LYMPH # 1.6 10*3/uL (1.3-4.4); LYMPH % 25.9 % (27.0-41.0); MEAN CELL VOLUME 83.3 fl (80.0-94.0); MEAN CORPUSCULAR HGB 24.8 pg (27.0-31.0); MEAN CORPUSCULAR HGB CONC 29.8 g/dl (33.0-37.0); MEAN PLATELET VOLUME 10.6 fl (9.6-12.3); MONO # 0.7 10*3/uL (0.1-1.0); MONO % 10.7 % (3.0-9.0); NEUT # 3.7 10*3/uL (2.3-7.9); PLATELET COUNT AUTOMATED 183 10*3/uL (130-400); RED BLOOD COUNT 5.08 10*6/uL (4.50-5.90); WHITE BLOOD COUNT 6.3 10*3/uL (4.8-10.8)
[2020-10-21 12:44] LABS: ALBUMIN 3.6 gm/dl (3.1-4.5); ALKALINE PHOSPHATASE 111 U/L (45-117); BUN 11 mg/dl (7-24); CHLORIDE 108 mmol/L (98-107); CREATININE 1.11 mg/dL (0.70-1.30); POTASSIUM 4.2 mmol/L (3.5-5.1); SGOT/AST 20 IU/L (3-35); SGPT/ALT 25 U/L (12-78); SODIUM 140 mmol/L (136-145); TOTAL PROTEIN 8.4 gm/dL (6.4-8.2)
[2020-10-24 05:06] LABS: TB1 Ag VALUE 0.04 IU/mL (.)
== END | disposition home or self-care (01) ==
LOC: LAB 11:38
PROVIDERS: ATTEND Nurse Practitioner Family
DX: L40.9 Psoriasis, unspecified (principal)

== ENCOUNTER 2021-02-21 22:38 | Emergency (ER) | payer OTHER ==
[2021-02-21] MEDS ORDERED: METHOCARBAMOL750 M1 PO (23:39)
[2021-02-21] MEDS ORDERED: NAPROSYN500 MG PO (23:39)
== END 2021-02-21 23:58 | disposition home or self-care (01) ==
LOC: ED 22:38
DX: S29.012A Strain of muscle and tendon of back wall of thorax, initial encounter (principal); Z88.8 Allergy status to other drugs, medicaments and biological substances; Z79.82 Long term (current) use of aspirin; Z79.899 Other long term (current) drug therapy; Z98.890 Other specified postprocedural states; X58.XXXA Exposure to other specified factors, initial encounter; Y93.89 Activity, other specified; Y92.89 Other specified places as the place of occurrence of the external cause; Y99.8 Other external cause status

== ENCOUNTER → 2021-05-22 | Outpatient (CLI) | payer OTHER ==
[~2021-05-22] MED LIST changes: +METHOCARBAMOL750 M1 PO
[2021-05-22 12:05] LABS: BASO % 0.6 % (0.0-1.0); EOS # 0.2 10*3/uL (0.0-0.4); EOS % 3.8 % (1.0-4.0); HEMATOCRIT 41.4 % (42.0-52.0); LYMPH # 1.7 10*3/uL (1.3-4.4); LYMPH % 26.6 % (27.0-41.0); MEAN CORPUSCULAR HGB 24.8 pg (27.0-31.0); MEAN CORPUSCULAR HGB CONC 30.2 g/dl (33.0-37.0); MEAN PLATELET VOLUME 10.7 fl (9.6-12.3); MONO # 0.7 10*3/uL (0.1-1.0); MONO % 10.4 % (3.0-9.0); NEUT # 3.6 10*3/uL (2.3-7.9); NEUT % 58.4 % (47.0-73.0); PLATELET COUNT AUTOMATED 187 10*3/uL (130-400); RED BLOOD COUNT 5.05 10*6/uL (4.50-5.90); RED CELL DISTRI WIDTH 16.2 % (0-14.5); WHITE BLOOD COUNT 6.2 10*3/uL (4.8-10.8)
[2021-05-22 12:21] LABS: ALBUMIN 3.7 gm/dl (3.1-4.5); BUN 9 mg/dl (7-24); CHLORIDE 107 mmol/L (98-107); POTASSIUM 4.3 mmol/L (3.5-5.1); SGOT/AST 20 IU/L (3-35); SGPT/ALT 29 U/L (12-78); SODIUM 140 mmol/L (136-145)
[2021-05-22 12:30] LABS: ALKALINE PHOSPHATASE 107 U/L (45-117); TOTAL PROTEIN 8.2 gm/dL (6.4-8.2)
== END | disposition home or self-care (01) ==
LOC: LAB 11:49
PROVIDERS: ATTEND Nurse Practitioner Family
DX: L40.9 Psoriasis, unspecified (principal)

== ENCOUNTER → 2021-08-26 | Outpatient (CLI) | payer OTHER | END | disposition home or self-care (01) | LOC: COVID19 15:07 → LAB 15:07 | PROVIDERS: ATTEND Hospitalist | DX: U07.1 COVID-19 (principal) ==

== ENCOUNTER → 2021-11-20 | Outpatient (CLI) | payer OTHER ==
[2021-11-20 11:15] LABS: BASO % 0.6 % (0.0-1.0); EOS # 0.3 10*3/uL (0.0-0.4); EOS % 4.3 % (1.0-4.0); HEMATOCRIT 35.4 % (42.0-52.0); LYMPH # 1.3 10*3/uL (1.3-4.4); LYMPH % 18.9 % (27.0-41.0); MEAN CELL VOLUME 83.1 fl (80.0-94.0); MEAN CORPUSCULAR HGB 25.6 pg (27.0-31.0); MEAN CORPUSCULAR HGB CONC 30.8 g/dl (33.0-37.0); MEAN PLATELET VOLUME 10.2 fl (9.6-12.3); MONO # 0.7 10*3/uL (0.1-1.0); MONO % 10.9 % (3.0-9.0); NEUT # 4.3 10*3/uL (2.3-7.9); PLATELET COUNT AUTOMATED 242 10*3/uL (130-400); RED BLOOD COUNT 4.26 10*6/uL (4.50-5.90); RED CELL DISTRI WIDTH 16.1 % (0-14.5); WHITE BLOOD COUNT 6.7 10*3/uL (4.8-10.8)
[2021-11-20 11:34] LABS: CREATININE 1.63 mg/dL (0.70-1.30); POTASSIUM 4.7 mmol/L (3.5-5.1); TOTAL PROTEIN 8.1 gm/dL (6.4-8.2)
[2021-11-22 19:05] LABS: TB1 Ag VALUE 0.08 IU/mL (.)
== END | disposition home or self-care (01) ==
LOC: LAB 10:43
PROVIDERS: ATTEND Nurse Practitioner Family
DX: L40.9 Psoriasis, unspecified (principal)

== ENCOUNTER 2021-11-28 20:49 | Emergency (ER) | payer OTHER ==
[2021-11-28 21:27] LABS: BASO # 0.1 10*3/uL (0.0-0.1); BASO % 0.7 % (0.0-1.0); EOS # 0.2 10*3/uL (0.0-0.4); EOS % 3.6 % (1.0-4.0); HEMATOCRIT 35.4 % (42.0-52.0); LYMPH # 1.5 10*3/uL (1.3-4.4); MEAN CELL VOLUME 82.3 fl (80.0-94.0); MEAN CORPUSCULAR HGB 25.3 pg (27.0-31.0); MEAN CORPUSCULAR HGB CONC 30.8 g/dl (33.0-37.0); MEAN PLATELET VOLUME 9.8 fl (9.6-12.3); MONO # 0.7 10*3/uL (0.1-1.0); MONO % 10.3 % (3.0-9.0); NEUT # 4.2 10*3/uL (2.3-7.9); NEUT % 62.1 % (47.0-73.0); PLATELET COUNT AUTOMATED 267 10*3/uL (130-400); WHITE BLOOD COUNT 6.7 10*3/uL (4.8-10.8)
[2021-11-28 21:46] LABS: CREATININE 1.79 mg/dL (0.70-1.30); POTASSIUM 4.1 mmol/L (3.5-5.1)
[2021-11-28 21:48] LABS: BILIRUBIN Negative (Negative); BLOOD 3+ (Negative); CLARITY Cloudy (Clear); COLOR Orange (Yellow); GLUCOSE Negative (Negative); KETONE Negative (Negative); LEUKO ESTERASE Trace (Negative); NITRITE Negative (Negative); SPECIFIC GRAVITY 1.015 (1.001-1.030)
[2021-11-28 22:06] LABS: RBC TNTC rbc/hpf (0-2)
[2021-11-28 22:07] LABS: BACTERIA 1+; YEAST 2+
[2021-11-28] MEDS ORDERED: FLOMAX0.4 MG PO (22:21)
[2021-11-28] MEDS ORDERED: ZOFRAN4 MG PO (22:21)
== END 2021-11-28 22:32 | disposition home or self-care (01) ==
LOC: ED 20:49
PROVIDERS: Internal Medicine
DX: N17.9 Acute kidney failure, unspecified (principal); N20.9 Urinary calculus, unspecified; Z88.1 Allergy status to other antibiotic agents; Z79.899 Other long term (current) drug therapy

== ENCOUNTER → 2021-12-13 | Outpatient (CLI) | payer OTHER ==
[~2021-12-13] MED LIST changes: +ZOFRAN4 MG PO
[2021-12-13 09:14] LABS: CREATININE 1.93 mg/dL (0.70-1.30); POTASSIUM 4.8 mmol/L (3.5-5.1); TOTAL PROTEIN 7.8 gm/dL (6.4-8.2)
== END | disposition home or self-care (01) ==
LOC: LAB 08:22
PROVIDERS: ATTEND Nurse Practitioner Family
DX: L40.9 Psoriasis, unspecified (principal)

== ENCOUNTER 2021-12-21 20:42 | Emergency (ER) | payer OTHER ==
[2021-12-21 22:02] LABS: BASO # 0.1 10*3/uL (0.0-0.1); BASO % 0.8 % (0.0-1.0); EOS # 0.3 10*3/uL (0.0-0.4); EOS % 4.5 % (1.0-4.0); HEMATOCRIT 32.1 % (42.0-52.0); LYMPH # 1.5 10*3/uL (1.3-4.4); LYMPH % 20.1 % (27.0-41.0); MEAN CELL VOLUME 82.9 fl (80.0-94.0); MEAN CORPUSCULAR HGB 25.6 pg (27.0-31.0); MEAN CORPUSCULAR HGB CONC 30.8 g/dl (33.0-37.0); MEAN PLATELET VOLUME 10.2 fl (9.6-12.3); MONO # 0.8 10*3/uL (0.1-1.0); MONO % 10.4 % (3.0-9.0); NEUT # 4.6 10*3/uL (2.3-7.9); NEUT % 63.1 % (47.0-73.0); PLATELET COUNT AUTOMATED 226 10*3/uL (130-400); RED BLOOD COUNT 3.87 10*6/uL (4.50-5.90); RED CELL DISTRI WIDTH 16.4 % (0-14.5); WHITE BLOOD COUNT 7.3 10*3/uL (4.8-10.8)
[2021-12-21 22:14] LABS: CREATININE 1.7 mg/dL (0.70-1.30); POTASSIUM 4.5 mmol/L (3.5-5.1)
[2021-12-21 22:20] LABS: BILIRUBIN Negative (Negative); BLOOD 3+ (Negative); CLARITY Clear (Clear); COLOR Red (Yellow); GLUCOSE Negative (Negative); KETONE Negative (Negative); LEUKO ESTERASE Trace (Negative); NITRITE Negative (Negative)
[2021-12-21 22:38] LABS: RBC TNTC rbc/hpf (0-2); YEAST TRACE
[2021-12-21] MEDS ORDERED: PREDNISONE50 MG PO (22:42)
[2021-12-21] MEDS ORDERED: VIBRAMYCIN100 MG PO (22:54)
== END 2021-12-21 23:12 | disposition home or self-care (01) ==
LOC: ED 20:42
PROVIDERS: Nurse Practitioner Family
DX: L40.4 Guttate psoriasis (principal); R31.9 Hematuria, unspecified; Z79.899 Other long term (current) drug therapy; Z79.82 Long term (current) use of aspirin; Z88.1 Allergy status to other antibiotic agents; Z88.8 Allergy status to other drugs, medicaments and biological substances

== ENCOUNTER → 2021-12-26 | Outpatient (CLI) | payer OTHER ==
[2021-12-26 10:43] LABS: BILIRUBIN Negative (Negative); BLOOD 3+ (Negative); CLARITY Clear (Clear); COLOR Orange (Yellow); GLUCOSE Negative (Negative); KETONE Negative (Negative); LEUKO ESTERASE Trace (Negative); NITRITE Negative (Negative); SPECIFIC GRAVITY 1.015 (1.001-1.030)
[2021-12-26 10:50] LABS: CREATININE 1.63 mg/dL (0.70-1.30); POTASSIUM 4.1 mmol/L (3.5-5.1); TOTAL PROTEIN 8.4 gm/dL (6.4-8.2)
[2021-12-26 11:43] LABS: RBC TNTC rbc/hpf (0-2)
[2021-12-27 09:07] LABS: CREATININE,URINE 91.3 mg/dL (Not Estab.)
== END | disposition home or self-care (01) ==
LOC: LAB 10:07
PROVIDERS: ATTEND Internal Medicine Nephrology
DX: N17.9 Acute kidney failure, unspecified (principal)

== ENCOUNTER → 2022-01-08 | Outpatient (CLI) | payer OTHER ==
[2022-01-08 09:39] LABS: BASO # 0.1 10*3/uL (0.0-0.1); BASO % 0.7 % (0.0-1.0); EOS # 0.2 10*3/uL (0.0-0.4); HEMATOCRIT 34.6 % (42.0-52.0); LYMPH % 12.8 % (27.0-41.0); MEAN CELL VOLUME 83.4 fl (80.0-94.0); MEAN CORPUSCULAR HGB 25.5 pg (27.0-31.0); MEAN CORPUSCULAR HGB CONC 30.6 g/dl (33.0-37.0); MEAN PLATELET VOLUME 10.3 fl (9.6-12.3); MONO # 0.8 10*3/uL (0.1-1.0); MONO % 10.7 % (3.0-9.0); NEUT # 5.4 10*3/uL (2.3-7.9); NEUT % 72.5 % (47.0-73.0); PLATELET COUNT AUTOMATED 258 10*3/uL (130-400); RED BLOOD COUNT 4.15 10*6/uL (4.50-5.90); RED CELL DISTRI WIDTH 16.6 % (0-14.5); WHITE BLOOD COUNT 7.5 10*3/uL (4.8-10.8)
[2022-01-08 10:04] LABS: CREATININE 1.82 mg/dL (0.70-1.30); POTASSIUM 4.4 mmol/L (3.5-5.1); TOTAL PROTEIN 8.1 gm/dL (6.4-8.2)
[2022-01-09 07:07] LABS: HEPATITIS C VIRUS ANTIBODY 0.1 s/co (0.0-0.9)
[2022-01-09 12:07] LABS: HEP B CORE AB, IGM Negative (Negative); HEPATITIS B SURFACE AG Negative (Negative)
[2022-01-10 15:07] LABS: TB1 Ag VALUE 0.01 IU/mL (.)
== END | disposition home or self-care (01) ==
LOC: LAB 08:53
PROVIDERS: Specialist; ATTEND Nurse Practitioner
DX: L40.0 Psoriasis vulgaris (principal)

== ENCOUNTER 2022-09-02 04:46 | Emergency (ER) | payer OTHER ==
[~2022-09-02] VITALS: Ht 187.9 cm; Wt 145.1 kg
[~2022-09-02 04:46] MED LIST changes: +KEFLEX 500 MG E2 CAP PO
[2022-09-02 05:38] LABS: CREATININE 1.54 mg/dL (0.70-1.30); POTASSIUM 3.4 mmol/L (3.4-5.1); TOTAL PROTEIN 8.4 gm/dL (6.0-8.0)
[2022-09-02 05:57] LABS: BASO % 0.3 % (0.0-1.0); HEMATOCRIT 40.1 % (42.0-52.0); LYMPH # 0.7 10*3/uL (1.3-4.4); LYMPH % 7.8 % (27.0-41.0); MEAN CELL VOLUME 76.8 fl (80.0-94.0); MEAN CORPUSCULAR HGB 23.9 pg (27.0-31.0); MEAN CORPUSCULAR HGB CONC 31.2 g/dl (33.0-37.0); MEAN PLATELET VOLUME 9.8 fl (9.6-12.3); MONO # 0.6 10*3/uL (0.1-1.0); NEUT # 7.4 10*3/uL (2.3-7.9); NEUT % 83.9 % (47.0-73.0); PLATELET COUNT AUTOMATED 272 10*3/uL (130-400); RED BLOOD COUNT 5.22 10*6/uL (4.50-5.90); RED CELL DISTRI WIDTH 17.5 % (0-14.5); WHITE BLOOD COUNT 8.8 10*3/uL (4.8-10.8)
[2022-09-02] MEDS ORDERED: ONDANSETRON4 MG SL ×2 (07:22)
[2022-09-03] MEDS ORDERED: LISINOPRIL20 MG PO (18:30)
[2022-09-03] MEDS ORDERED: ATORVASTATIN CA20 M1 PO (18:30)
[2022-09-03] MEDS ORDERED: LEVOTHYROXINE175 MCG PO (18:31)
[2022-09-03] MEDS ORDERED: ASPIRIN ADULT L81 M1 PO (18:31)
[2022-09-03] MEDS ORDERED: LOPRESSOR25 MG PO (18:32)
[2022-09-03] MEDS ORDERED: CLOPIDOGREL75 MG PO (18:33)
== END 2022-09-02 07:45 | disposition home or self-care (01) ==
LOC: ED 04:46
PROVIDERS: Internal Medicine
DX: K52.9 Noninfective gastroenteritis and colitis, unspecified (principal); E83.42 Hypomagnesemia; D50.9 Iron deficiency anemia, unspecified; N18.31 Chronic kidney disease, stage 3a; Z88.1 Allergy status to other antibiotic agents; F10.90 Alcohol use, unspecified, uncomplicated; Z88.3 Allergy status to other anti-infective agents

== ENCOUNTER 2022-09-02 16:17 | Emergency (ER) | payer OTHER ==
[~2022-09-02 16:17] MED LIST changes: +ONDANSETRON4 MG SL
[2022-09-03] MEDS ORDERED: LISINOPRIL20 MG PO (18:30)
[2022-09-03] MEDS ORDERED: ATORVASTATIN CA20 M1 PO (18:30)
[2022-09-03] MEDS ORDERED: ASPIRIN ADULT L81 M1 PO (18:31)
[2022-09-03] MEDS ORDERED: LEVOTHYROXINE175 MCG PO (18:31)
[2022-09-03] MEDS ORDERED: LOPRESSOR25 MG PO (18:32)
[2022-09-03] MEDS ORDERED: CLOPIDOGREL75 MG PO (18:33)
== END 2022-09-02 16:52 | disposition left against medical advice (07) ==
LOC: ED 16:17
DX: R19.7 Diarrhea, unspecified (principal); Z53.21 Procedure and treatment not carried out due to patient leaving prior to being seen by health care provider

== ENCOUNTER 2022-09-03 13:24 | Inpatient (IN) | payer OTHER ==
[~2022-09-03] VITALS: Ht 185.4 cm; Wt 136.1 kg
[2022-09-03] VITALS (10 sets, daily range): BP systolic 72–108; BP diastolic 32–58
[2022-09-03 14:58] LABS: BASO % 0.5 % (0.0-1.0); EOS % 0.6 % (1.0-4.0); HEMATOCRIT 38.6 % (42.0-52.0); LYMPH # 0.8 10*3/uL (1.3-4.4); LYMPH % 11.5 % (27.0-41.0); MEAN CELL VOLUME 76.4 fl (80.0-94.0); MEAN CORPUSCULAR HGB 24.6 pg (27.0-31.0); MEAN CORPUSCULAR HGB CONC 32.1 g/dl (33.0-37.0); MEAN PLATELET VOLUME 9.8 fl (9.6-12.3); MONO # 0.6 10*3/uL (0.1-1.0); NEUT # 5.2 10*3/uL (2.3-7.9); NEUT % 78.2 % (47.0-73.0); PLATELET COUNT AUTOMATED 263 10*3/uL (130-400); RED BLOOD COUNT 5.05 10*6/uL (4.50-5.90); RED CELL DISTRI WIDTH 17.6 % (0-14.5); WHITE BLOOD COUNT 6.6 10*3/uL (4.8-10.8)
[2022-09-03 15:13] LABS: POTASSIUM 3.2 mmol/L (3.4-5.1); TOTAL PROTEIN 8.2 gm/dL (6.0-8.0)
[2022-09-03] MEDS ORDERED: LISINOPRIL20 MG PO (18:30)
[2022-09-03] MEDS ORDERED: ATORVASTATIN CA20 M1 PO (18:30)
[2022-09-03] MEDS ORDERED: ASPIRIN ADULT L81 M1 PO (18:31)
[2022-09-03] MEDS ORDERED: LEVOTHYROXINE175 MCG PO (18:31)
[2022-09-03] MEDS ORDERED: LOPRESSOR25 MG PO (18:32)
[2022-09-03] MEDS ORDERED: CLOPIDOGREL75 MG PO (18:33)
[2022-09-03 19:10] LABS: BILIRUBIN 2+ (Negative); BLOOD 3+ (Negative); CLARITY Turbid (Clear); COLOR Dark Yellow (Yellow); GLUCOSE Negative (Negative); KETONE Negative (Negative); LEUKO ESTERASE 1+ (Negative); NITRITE Negative (Negative); SPECIFIC GRAVITY 1.015 (1.001-1.030)
[2022-09-03 19:17] LABS: BACTERIA 1+; MUCOUS 1+; RBC 21-30 rbc/hpf (0-2)
[2022-09-04 04:29] VITALS: BP 98/62
[2022-09-04 06:34] LABS: BASO % 0.3 % (0.0-1.0); EOS # 0.1 10*3/uL (0.0-0.4); HEMATOCRIT 36.1 % (42.0-52.0); LYMPH # 1.3 10*3/uL (1.3-4.4); LYMPH % 21.4 % (27.0-41.0); MEAN CELL VOLUME 77.8 fl (80.0-94.0); MEAN CORPUSCULAR HGB 23.7 pg (27.0-31.0); MEAN CORPUSCULAR HGB CONC 30.5 g/dl (33.0-37.0); MEAN PLATELET VOLUME 10.6 fl (9.6-12.3); MONO # 0.7 10*3/uL (0.1-1.0); MONO % 11.5 % (3.0-9.0); NEUT # 3.8 10*3/uL (2.3-7.9); NEUT % 64.3 % (47.0-73.0); PLATELET COUNT AUTOMATED 244 10*3/uL (130-400); RED BLOOD COUNT 4.64 10*6/uL (4.50-5.90); RED CELL DISTRI WIDTH 17.7 % (0-14.5); WHITE BLOOD COUNT 5.9 10*3/uL (4.8-10.8)
[2022-09-04 07:41] LABS: FREE T4 0.68 ng/dl (0.89-1.76); POTASSIUM 3.7 mmol/L (3.4-5.1); THYROID STIM HORMONE (HS) 3.542 uIU/ml (0.550-4.780)
== END 2022-09-04 07:25 | disposition left against medical advice (07) | DRG 391 ==
LOC: ED 13:24 → EDHOLD 15:33
PROVIDERS: Internal Medicine; Student in an Organized Health Care Education/Training Program; ADMIT Internal Medicine; ATTEND Internal Medicine
DX: K52.9 Noninfective gastroenteritis and colitis, unspecified (principal); N17.0 Acute kidney failure with tubular necrosis; E87.1 Hypo-osmolality and hyponatremia; E87.20 Acidosis, unspecified; Z20.822 Contact with and (suspected) exposure to COVID-19; L40.0 Psoriasis vulgaris; E03.9 Hypothyroidism, unspecified; I10 Essential (primary) hypertension; I25.10 Atherosclerotic heart disease of native coronary artery without angina pectoris; I95.9 Hypotension, unspecified; E66.01 Morbid (severe) obesity due to excess calories; D50.9 Iron deficiency anemia, unspecified; E87.6 Hypokalemia; D72.810 Lymphocytopenia; E78.2 Mixed hyperlipidemia; Z88.1 Allergy status to other antibiotic agents; Z88.8 Allergy status to other drugs, medicaments and biological substances; Z80.0 Family history of malignant neoplasm of digestive organs; Z80.3 Family history of malignant neoplasm of breast; I25.2 Old myocardial infarction; Z95.5 Presence of coronary angioplasty implant and graft; Z82.49 Family history of ischemic heart disease and other diseases of the circulatory system; Z83.6 Family history of other diseases of the respiratory system; Z68.39 Body mass index [BMI] 39.0-39.9, adult; Z53.29 Procedure and treatment not carried out because of patient's decision for other reasons

== ENCOUNTER → 2023-01-05 | Outpatient (CLI) | payer OTHER ==
[~2023-01-05] MED LIST changes: +ASPIRIN ADULT L81 M1 PO; +ATORVASTATIN CA20 M1 PO; +CLOPIDOGREL75 MG PO; +LEVOTHYROXINE175 MCG PO; +LOPRESSOR25 MG PO
[2023-01-06 06:08] LABS: HBSAG Negative (Negative); HEP B CORE AB, IGM Negative (Negative); HEPATITIS C ANTIBODY Non Reactive (Non Reactive)
[2023-01-07 16:08] LABS: TB1 Ag VALUE 0.05 IU/mL (.)
== END ==
LOC: LAB 08:50
PROVIDERS: ATTEND Nurse Practitioner
DX: L40.0 Psoriasis vulgaris (principal)

== ENCOUNTER → 2023-09-09 | Outpatient (CLI) | payer OTHER ==
[2023-09-09 09:39] LABS: ALKALINE PHOSPHATASE 122 U/L (46-116); BUN 9 mg/dl (9-23); CHLORIDE 103 mmol/L (98-107); CPK 78 U/L (34-171); POTASSIUM 4.3 mmol/L (3.4-5.1); SGPT/ALT 15 U/L (5-49); TOTAL PROTEIN 7.9 gm/dL (6.0-8.0)
[2023-09-11 15:31] LABS: TB1 Ag VALUE 0.01 IU/mL (.)
== END | disposition home or self-care (01) ==
LOC: LAB 08:30
PROVIDERS: ATTEND Nurse Practitioner
DX: L40.0 Psoriasis vulgaris (principal); R53.83 Other fatigue; L08.0 Pyoderma; L85.3 Xerosis cutis; Z79.899 Other long term (current) drug therapy

== ENCOUNTER → 2023-12-23 | Outpatient (CLI) | payer OTHER | END | disposition home or self-care (01) | LOC: LAB 09:52 | PROVIDERS: ATTEND Nurse Practitioner | DX: L40.0 Psoriasis vulgaris (principal) ==